=== PATIENT | female | born 1995 | race Hispanic/Latino ===

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

== ENCOUNTER 2017-01-20 22:50 | Emergency (ER) | payer OTHER ==
[~2017-01-20] VITALS: Ht 162.6 cm; Wt 74.8 kg
[2017-01-20 22:56] VITALS: BP 101/66
[2017-01-20] MEDS ORDERED: TOBRADEX EYE O3.5 GM OPH (23:21)
--- NOTE | 2017-01-20 23:21 | ED EYE COMPLAINT ---
History of Present Illness General Chief Complaint: Eye Problems Stated Complaint: " ?PINK EYE" Source: patient Exam Limitations: no limitations Vital Signs & Intake/Output Vital Signs & Intake/Output Vital Signs Date Time Temp Pulse Resp B/P B/P Pulse O2 O2 Flow FiO2 Mean Ox Delivery Rate 01/20 2256 97.5 67 16 101/66 98 Room Air ED Intake and Output 01/21 0000 01/20 1200 Intake Total Output Total Balance Patient 165 lb Weight Weight Reported by Patient Measurement Method Allergies Coded Allergies: amoxicillin (Mild, RASH 07/04/16) Uncoded Allergies: RUNTS CANDY (TONGUE SWELLING 07/04/16) Reconcile Medications Diazepam (Valium) 5 MG TABLET 1 TAB PO BIDP PRN MUSCLE SPASM TEN...[id number] Hydroxyzine Pamoate (Vistaril) 50 MG CAPSULE 1 CAP PO TID PRN . Ibuprofen 800 MG TABLET 1 TAB PO TID PRN PAIN Tobramycin/Dexamethasone (Tobradex Eye Ointment) 0.3 %-0.1 % OINT...G. 1 ELADIO OPH TID conjunctivitis Tramadol HCl (Ultram) 50 MG TABLET 1-2 TAB PO Q-PM PRN FOR MORE SEVERE BACK PAIN TWENTY...[id number] Triage Note: 21F WOKE UP THIS AM WITH REDNESS AND IRRITATION TO R EYE WITH CRUSTING AND YELLOWISH DRAINAGE. +ICHING AND BURNING. SLIGHT INFLAMMATION TO CONJUNCTIVA OBSERVED. VISION INTACT, SLIGHT BLURRING FROM TEARS Triage Nurses Notes Reviewed? yes Onset: Abrupt Duration: day(s): (1), constant, continues in ED, getting worse Timing: single episode today Severity: mild, moderate Severity Numbers: 5 No Modifying Factors: none Right Eye Associated Symptoms: burning, itching, sensitivity to light, blurred vision LMP (ages 10-50): unknown : No Patient currently breastfeeds: No HPI: 21-year-old female with no past medical history presents complaining of right eye redness, irritation and discharge for the past day. Patient reports that she woke up this morning and her eye was crusted shut. Throughout the day she has noticed thick white yellow discharge coming from the eye. She reports associated blurred vision but denies any eye pain, fevers, pain with eye movement, triggering events, eye foreign bodies, sore throat, ear pain, shortness of breath, chest pain or headaches. No sick contacts. She does not wear contacts. (АЛЕКСАНДР HUGHES PA-C) Past History Travel History Traveled to [place] past 21 day No Medical History Any Pertinent Medical History? 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 No (АЛЕКСАНДР HUGHES PA-C) Review of Systems Review of Systems Constitutional: Reports: no symptoms. Eyes: Reports: see HPI, blurred vision, drainage, inflammation. Ear: Reports: no symptoms. Nose: Reports: no symptoms. Mouth: Reports: no symptoms. Throat: Reports: no symptoms. Respiratory: Reports: no symptoms. Cardiovascular: Reports: no symptoms. GI: Reports: no symptoms. Genitourinary: Reports: no symptoms. Musculoskeletal: Reports: no symptoms. Skin: Reports: no symptoms. Neurological/Psychological: Reports: no symptoms. Hematologic/Endocrine: Reports: no symptoms. Immunologic/Allergic: Reports: no symptoms. All Other Systems: Reviewed and Negative (АЛЕКСАНДР HUGHES PA-C) Physical Exam General Appearance: well developed/nourished, no apparent distress, alert, awake General Inspection: normal inspection Eyelid: normal inspection, everted for exam Conjunctiva/Sclera: normal inspection, see diagram Cornea: normal inspection EOM: intact Pupil: normal accommodation, normal pupil, PERRL Anterior Chamber: normal inspection General Inspection: periorbital swelling Eyelid: everted for exam, edema Conjunctiva/Sclera: exudate, injected Cornea: normal inspection EOM: intact Pupil: normal accommodation, normal pupil, PERRL Anterior Chamber: normal inspection Posterior Segments: normal funduscopic Physical Exam Head: atraumatic, normal appearance Ears: Bilateral: canal normal, Tympanic normal. Nose: normal inspection Mouth/Throat: normal mouth inspection, pharynx normal Neck: normal inspection, supple, full range of motion, no midline tenderness Cardiovascular/Respiratory: normal breath sounds, normal peripheral pulses, regular rate/rhythm Neurologic/Psych: no motor/sensory deficits, awake, alert, oriented x 3, normal gait, normal mood/affect Skin: intact, normal color, warm/dry (АЛЕКСАНДР HUGHES PA-C) Progress Differential Diagnosis: corneal abrasion, corneal foreign body, conjunctivitis, keratitis, blepharitis, foreign body Plan of Care: There is evidence of bacterial conjunctivitis on exam. Patient will be treated with TobraDex ointment 3 times a day for one week. Discussed treatment plan with patient and she is nontoxic appearing and is in agreement with the plan. (АЛЕКСАНДР HUGHES PA-C) Departure Departure Disposition: HOME OR SELF CARE Condition: Stable Clinical Impression Primary Impression: Bacterial conjunctivitis of right eye Referrals: BETO CASTAÑEDA,ALEENA Jean (PCP/Family) Additional Instructions: Rest and drink plenty of fluids. Apply TobraDex ointment as directed for the full course. Apply warm compresses to her eye several times per day. Wash your hands, disinfect surfaces disinfect doorknobs and change your pillowcase. Avoid close contact with others. Make a follow-up appointment with your primary care doctor this coming week. Return to the emergency department with any concerns. 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 I have also reviewed all the pertinent lab results and diagnostic results. I agree with the findings and the plan of care as documented in the PA's/FULL STACK NET DEVELOPER's documentation. [X] I have reviewed the ED Record and agree with the PA's/FULL STACK NET DEVELOPER's documentation. [] Additions or exceptions (if any) to the PAs/FULL STACK NET DEVELOPER's note and plan are summarized below: [] (KEYLA CASTAÑEDA,ELEANOR Cortes)
== END 2017-01-20 23:35 ==
LOC: ERH 22:50
DX: H10.9 Unspecified conjunctivitis (principal)